=== PATIENT | female | born 1980 | race Caucasian/White ===

== ENCOUNTER 2017-06-07 15:42 | Emergency (ER) | payer OTHER, MEDICAID ==
[~2017-06-07] VITALS: Ht 170.2 cm; Wt 90.7 kg
[~2017-06-07 15:42] MED LIST: ANTIVERT25 MG PO; APAP500; ATENOLOL 100MG100 MG PO; ATENOLOL 50MG T50 MG PO; BACTRIM DS TAB1 EACH PO; BUSPAR30 MG; CELEXA 20 MG TA20 MG PO; CIPROFLOXACIN500 M1 PO; CLEOCIN HCL150 MG PO; CLONAZEPAM 0.50.5 M1 PO; COLACE100 MG PO; DAYPRO600 MG PO; ERYTHROMYCIN500 MG PO; FLAGYL500 MG PO; FLEXERIL PO; FLOMAX PO; HYDROCODONE-AP1 EAC6 PO; IBUPROFEN 800800 M1 PO; IBUPROFEN 800800 MG PO; KLONOPIN1 MG; KLONOPIN1 MG PO; LIDOCAINE VISC100 M1 MM; LIDOCAINE VISC100 ML SWISH&SPIT; LO LOESTRIN FE1 EACH PO; LOESTRIN1 EAC1 PO; NAPROSYN500 MG PO; NORCO 5-325 TA1 EACH PO; ONDANSETRON HCL4 M2 PO; PERCOCET 10-321 EACH; PERCOCET 5-3251 EACH PO; PERCOCET PO; PHENAZOPYRIDIN200 M2 PO; PREDNISONE 10 M10 MG PO; PROMETHAZINE-C120 ML PO; PROZAC; PROZAC20 MG PO; TRAMADOL 50 MG50 MG PO; ULTRAM 50MG TAB50 MG PO; VENTOLIN HFA 1818 GM INH; XANAX 0.25 MG0.25 MG PO; ZANAFLEX4 M1; ZPAK PO
[2017-06-07 15:50] VITALS: BP 133/89
[2017-06-07] MEDS ORDERED: PROMETHAZINE-D118 ML PO (16:00)
== END 2017-06-07 16:05 | disposition home or self-care (01) ==
LOC: M.ERS 15:42
DX: B34.9 Viral infection, unspecified (principal); F17.210 Nicotine dependence, cigarettes, uncomplicated; F41.9 Anxiety disorder, unspecified; F41.0 Panic disorder [episodic paroxysmal anxiety]; Z88.0 Allergy status to penicillin; Z88.5 Allergy status to narcotic agent

== ENCOUNTER 2017-12-23 13:53 | Emergency (ER) | payer OTHER ==
[~2017-12-23] VITALS: Ht 172.7 cm; Wt 108.9 kg
[~2017-12-23 13:53] MED LIST changes: +PROMETHAZINE-D118 ML PO
[2017-12-23] MEDS ORDERED: EFFEXOR 5050 MG/1 T1 PO (14:08)
[2017-12-23 14:32] LABS: URINE BILIRUBIN NEGATIVE (Negative); URINE BLOOD TRACE (Negative); URINE CLARITY CLEAR; URINE COLOR YELLOW; URINE GLUCOSE-RANDOM NEGATIVE (Negative); URINE KETONES NEGATIVE (Negative); URINE NITRITE-REFLEX NEGATIVE (Negative); URINE PROTEIN NEGATIVE (Negative); URINE SPECIFIC GRAVITY 1.025 (1.005-1.030); URINE UROBILINOGEN 0.2 E.U./dl (0.2-1.0)
[2017-12-23 14:34] LABS: URINE LEUKOCYTES-REFLEX 3+ (Negative)
[2017-12-23 14:51] LABS: CASTS None Seen /LPF (None Seen); CRYSTALS None Seen /LPF (None Seen); SQUAMOUS 0-3 Few /LPF (0-3); URINE RBC 3-10 Few /HPF (0-2); URINE WBC-REFLEX >25 Many /HPF (0-5)
[2017-12-23 15:26] LABS: ABSOLUTE EOSINOPHILS 0.1 thou/uL (0.0-0.7); ABSOLUTE LYMPHOCYTES 5.4 thou/uL (0.8-5.3); ABSOLUTE MONOCYTES 1.2 thou/uL (0.0-1.2); ABSOLUTE NEUTROPHILS 7.6 thou/uL (1.6-8.1); BASOPHILS 0.2 %; EOSINOPHILS 0.5 %; HEMOGLOBIN 12.7 gm/dL (12.0-15.0); LYMPHOCYTES 38.1 %; MCH 31.5 pg (26.0-34.0); MCHC 32.7 g/dL (28.0-37.0); MCV 96.6 fL (80.0-100.0); MONOCYTES 8.2 %; MPV 7.5 fl. (7.2-11.1); NUCLEATED RBCS 0 /100WBC; PLATELET COUNT* 346 thou/uL (150-400); RBC 4.04 mil/uL (4.20-5.00); RDW-CV 14.6 % (10.5-14.5); WBC 14.3 thou/uL (4.0-11.0)
[2017-12-23 15:38] LABS: CALCIUM 8.7 mg/dL (8.5-10.1); CREATININE 1.1 mg/dL (0.6-1.3); POTASSIUM 3.6 mmol/L (3.5-5.1)
[2017-12-23 15:43] LABS: ALBUMIN 3.3 g/dL (3.4-5.0); TOTAL BILIRUBIN 0.2 mg/dL (<0.1-1.0); TOTAL PROTEIN 7.1 g/dL (6.4-8.2)
[2017-12-23] MEDS ORDERED: MACROBID 100 M100 M1 PO (15:45)
[2017-12-23] MEDS ORDERED: IBUPROFEN 800800 M1 PO (15:45)
[2017-12-23 15:56] VITALS: BP 120/79
[2017-12-24] MEDS ORDERED: FLEXERIL PO (16:35)
[2017-12-24] MEDS ORDERED: NORCO 5-325 TA1 EACH PO (16:35)
== END 2017-12-23 15:57 | disposition home or self-care (01) ==
LOC: M.ERS 13:53
PROVIDERS: Nurse Practitioner Family
DX: N39.0 Urinary tract infection, site not specified (principal); F41.0 Panic disorder [episodic paroxysmal anxiety]; F17.210 Nicotine dependence, cigarettes, uncomplicated; Z88.0 Allergy status to penicillin; Z88.5 Allergy status to narcotic agent; Z88.6 Allergy status to analgesic agent; Z88.8 Allergy status to other drugs, medicaments and biological substances; Z87.442 Personal history of urinary calculi

== ENCOUNTER 2017-12-24 15:30 | Emergency (ER) | payer OTHER ==
[~2017-12-24] VITALS: Ht 172.7 cm; Wt 108.9 kg
[~2017-12-24 15:30] MED LIST changes: +EFFEXOR 5050 MG/1 T1 PO; +MACROBID 100 M100 M1 PO
[2017-12-24 16:15] VITALS: BP 151/109
[2017-12-24] MEDS ORDERED: FLEXERIL PO (16:35)
[2017-12-24] MEDS ORDERED: NORCO 5-325 TA1 EACH PO (16:35)
== END 2017-12-24 16:44 | disposition home or self-care (01) ==
LOC: M.ERS 15:30
DX: M54.5 Low back pain (principal); R33.9 Retention of urine, unspecified; F41.9 Anxiety disorder, unspecified; F17.210 Nicotine dependence, cigarettes, uncomplicated

== ENCOUNTER 2018-08-02 23:11 | Emergency (ER) | payer OTHER ==
[~2018-08-02] VITALS: Ht 172.7 cm; Wt 90.7 kg
[2018-08-02] MEDS ORDERED: WELLBUTRIN SR150 MG (23:18)
[2018-08-02] MEDS ORDERED: DITROPAN XL10 M1 (23:19)
[2018-08-02 23:41] LABS: ABSOLUTE BASOPHILS 0.1 thou/uL (0.0-0.2); ABSOLUTE EOSINOPHILS 0.1 thou/uL (0.0-0.7); ABSOLUTE LYMPHOCYTES 2.7 thou/uL (0.8-5.3); ABSOLUTE MONOCYTES 0.8 thou/uL (0.0-1.2); ABSOLUTE NEUTROPHILS 5.7 thou/uL (1.6-8.1); BASOPHILS 0.7 %; EOSINOPHILS 1.5 %; HEMATOCRIT 40.4 % (37.0-47.0); HEMOGLOBIN 13.5 gm/dL (12.0-15.0); MCH 30.3 pg (26.0-34.0); MCHC 33.3 g/dL (28.0-37.0); MONOCYTES 8.3 %; MPV 7.6 fl. (7.2-11.1); NUCLEATED RBCS 0 /100WBC; PLATELET COUNT* 313 thou/uL (150-400); POLYS 60.5 %; RBC 4.44 mil/uL (4.20-5.00); RDW-CV 13.9 % (10.5-14.5); WBC 9.4 thou/uL (4.0-11.0)
[2018-08-02 23:59] LABS: ALBUMIN 3.4 g/dL (3.4-5.0); ALKALINE PHOSPHATASE 50 U/L (46-116); ANION GAP 12 mmol/L (7-16); BUN 11 mg/dL (7-18); CALCIUM 9.3 mg/dL (8.5-10.1); CHLORIDE 106 mmol/L (98-107); CO2 25 mmol/L (21-32); CREATININE 1.2 mg/dL (0.6-1.3); GLUCOSE 86 mg/dL (70-99); SGOT 16 U/L (15-37); SGPT 17 U/L (30-65); SODIUM 143 mmol/L (136-145); TOTAL BILIRUBIN 0.3 mg/dL (<0.1-1.0); TOTAL PROTEIN 7.1 g/dL (6.4-8.2); TROPONIN-I LEVEL <0.06 ng/mL (<0.06)
[2018-08-03] MEDS ORDERED: FLEXERIL PO (01:11)
[2018-08-03] MEDS ORDERED: NABUMETONE 750750 M1 PO (01:11)
[2018-08-03 02:29] VITALS: BP 121/89
--- NOTE | 2018-08-03 17:41 | EKG ---
[place] [address] ELECTROCARDIOGRAM REPORT Name: TEX PIERRE Room: [facility]#: [id number] Admission: 08/02/18 Attend Phys: Discharge: 08/03/18 Date of : 82 Report #: [id number] THIS REPORT FOR: //name// [facility] ED Test Date: 2018-08-02 Test Time: 23:35:51 Pat Name: TEX PIERRE Department: Room: Gender: F Haircutter: Jonathan JOSÉ : 1980 Requested By: Emily Blanco Order Number: [id number] MD: Maninder Billingsley Measurements Intervals [place] Rate: 66 P: 56 NE: 151 QRS: 41 QRSD: 93 T: 4 QT: 396 QTc: 415 Interpretive Statements Sinus rhythm Compared to ECG 10/21/2016 12:57:32 No significant changes Electronically Signed On 08-03-2018 17:40:55 CDT by Maninder Billingsley [email or web address] <ELECTRONICALLY SIGNED> By: Maninder Billingsley MD, [facility] 08/03/18 1740 [id number] Maninder Billingsley MD, FACC /EPI
== END 2018-08-03 02:29 | disposition home or self-care (01) ==
LOC: M.ERS 23:11
PROVIDERS: Nurse Practitioner Family
DX: S16.1XXA Strain of muscle, fascia and tendon at neck level, initial encounter (principal); S09.8XXA Other specified injuries of head, initial encounter; S29.012A Strain of muscle and tendon of back wall of thorax, initial encounter; R55 Syncope and collapse; F41.9 Anxiety disorder, unspecified; F17.210 Nicotine dependence, cigarettes, uncomplicated; Z88.0 Allergy status to penicillin; Z88.8 Allergy status to other drugs, medicaments and biological substances; W18.39XA Other fall on same level, initial encounter; Y93.89 Activity, other specified; Y92.89 Other specified places as the place of occurrence of the external cause; Y99.8 Other external cause status

== ENCOUNTER 2020-08-21 11:44 | Emergency (ER) | payer OTHER ==
[~2020-08-21] VITALS: Ht 170.2 cm; Wt 72.6 kg
[~2020-08-21 11:44] MED LIST changes: +DITROPAN XL10 M1; +NABUMETONE 750750 M1 PO; +WELLBUTRIN SR150 MG
[2020-08-21] MEDS ORDERED: EFFEXOR XR150 MG (11:57)
[2020-08-21] MEDS ORDERED: METFORMIN HCL500 M3 (11:58)
[2020-08-21] MEDS ORDERED: OXYBUTYNIN 5 MG5 M2 (11:58)
[2020-08-21] MEDS ORDERED: NEURONTIN 400M400 M2 (11:58)
[2020-08-21] MEDS ORDERED: WELLBUTRIN SR150 M1 PO (11:58)
[2020-08-21] MEDS ORDERED: XARELTO20 MG PO ×2 (11:58→12:07)
[2020-08-21] MEDS ORDERED: ATENOLOL 100MG100 MG PO ×2 (11:59→12:07)
[2020-08-21] MEDS ORDERED: FLEXERIL PO ×2 (11:59→12:07)
[2020-08-21] MEDS ORDERED: METFORMIN HCL500 M3 PO (12:07)
[2020-08-21] MEDS ORDERED: EFFEXOR XR75 MG PO (12:07)
[2020-08-21] MEDS ORDERED: NEURONTIN 400M400 M2 PO (12:07)
[2020-08-21] MEDS ORDERED: EFFEXOR XR150 MG PO (12:07)
[2020-08-21] MEDS ORDERED: OXYBUTYNIN 5 MG5 M2 PO (12:07)
[2020-08-21 12:23] VITALS: BP 136/88
== END 2020-08-21 12:23 | disposition home or self-care (01) ==
LOC: M.ERS 11:44
DX: E11.9 Type 2 diabetes mellitus without complications (principal); F41.9 Anxiety disorder, unspecified; Z76.0 Encounter for issue of repeat prescription; F17.210 Nicotine dependence, cigarettes, uncomplicated; Z87.442 Personal history of urinary calculi; Z88.0 Allergy status to penicillin; Z88.6 Allergy status to analgesic agent